=== PATIENT | male | born 1995 | race Two or more races ===

== ENCOUNTER 2020-10-05 18:12 | Emergency (ER) | payer BC, OTHER ==
[~2020-10-05] VITALS: Ht 167.6 cm; Wt 81.6 kg
[2020-10-05 19:40] LABS: Basophils # (auto) 0.1 10 ^3/uL (0-0.2); Basophils % (auto) 1.2 % (0.0-2.0); Eosinophils # (auto) 0.2 10 ^3/uL (0-0.8); Eosinophils % (auto) 3.4 % (0.0-7.0); Hematocrit 43.9 % (41.0-53.0); Hemoglobin 15.4 g/dL (13.5-17.5); Lymphocytes % (auto) 27.8 % (10.0-50.0); Mean Corpuscular Hemoglobin 31.2 pg (28.0-32.0); Mean Corpuscular Hgb Conc. 35.1 g/dL (32.0-36.0); Mean Corpuscular Volume 88.8 fL (80.0-100.0); Monocytes # (auto) 0.8 10 ^3/uL (0-1.3); Monocytes % (auto) 10.8 % (0.0-12.0); Neutrophils % (auto) 56.8 % (37.0-80.0); Nucleated Red Blood Cells % 0.2 %; Platelet Count (auto) 225 10^3/uL (140-450); Red Blood Cells 4.94 10^6/uL (4.5-5.90); Red Cell Distribution Width 13.5 % (11.8-14.3); White Blood Cell 7.1 10^3/uL (4.4-10.8)
[2020-10-05 19:58] LABS: Albumin 4.1 g/dL (3.4-5.0); Potassium 3.9 mmol/L (3.5-5.1)
[2020-10-05 20:00] LABS: BUN/Creatinine Ratio 18.4
[2020-10-05 20:12] LABS: Bilirubin, Total 0.2 mg/dL (0.2-1.0); Total Protein 7.9 g/dL (6.4-8.2)
[2020-10-05 23:21] LABS: Magnesium 2.1 mg/dL (1.6-2.6)
[2020-10-05 23:26] LABS: INR 1.08 (0.9-1.15); Partial Thromboplastin Time 25.5 sec (23.0-31.2)
[2020-10-06 01:55] LABS: Urine Bacteria FEW /hpf (None Seen); Urine Blood Negative /uL (Negative); Urine Mucus FEW (None Seen); Urine WBC 2 /hpf (0 - 3)
[2020-10-06 03:08] VITALS: BP 148/70
== END 2020-10-06 03:09 | disposition home or self-care (01) ==
LOC: ER 18:12 → EDBD 18:12 → ER 10-06 03:09
DX: K92.1 Melena (principal)
CPT/HCPCS: 36415; 74176; 80053; 81001; 82150; 83690; 83735; 85025; 85610; 85730